=== PATIENT | female | born 1985 | race Caucasian/White ===

== ENCOUNTER 2020-04-14 20:34 | Emergency (ER) | payer OTHER ==
[~2020-04-14] VITALS: Ht 162.6 cm; Wt 68.0 kg
[2020-04-14 20:47] VITALS: Ht 162.6 cm; Wt 68.0 kg
[2020-04-14 21:19] LABS: BASOPHIL % 0.8 % (0-2); PLATELET COUNT 330 x10^3mcL (130-400)
[2020-04-14 21:21] LABS: CALCIUM 8.8 mg/dL (8.5-10.1); CARBON DIOXIDE 23.7 mmol/L (21-32); CHLORIDE SERUM 102 mmol/L (98-107); CREATININE SERUM 0.7 mg/dL (0.6-1.0); GFR1 > 60 mL/min; GLUCOSE SERUM 240 mg/dL (74-106); POTASSIUM SERUM 4.5 mmol/L (3.5-5.1); RED CELL DISTRIBUTION WIDTH 15.4 % (11.5-14.5); SODIUM SERUM 136 mmol/L (136-145)
[2020-04-14 21:22] LABS: LIPASE 165 IU/L (73-393)
[2020-04-15 00:37] VITALS: BP 124/85
== END 2020-04-15 00:37 | disposition home or self-care (01) ==
LOC: ED 20:34
PROVIDERS: Emergency Medicine
DX: M54.2 Cervicalgia (principal); M25.512 Pain in left shoulder; R10.84 Generalized abdominal pain; R07.89 Other chest pain; I10 Essential (primary) hypertension; E11.9 Type 2 diabetes mellitus without complications; Z98.890 Other specified postprocedural states; V49.59XA Passenger injured in collision with other motor vehicles in traffic accident, initial encounter; Y93.89 Activity, other specified; Y92.488 Other paved roadways as the place of occurrence of the external cause; Y99.8 Other external cause status
CPT/HCPCS: J3010; J7030; Q0092; Q9967